=== PATIENT | female | born 1975 | race Hispanic/Latino ===

== ENCOUNTER → 2020-05-22 | Outpatient (CLI) | payer OTHER | LOC: MAMMO 09:02 | PROVIDERS: ATTEND Internal Medicine | DX: Z12.31 Encounter for screening mammogram for malignant neoplasm of breast (principal) | CPT/HCPCS: 77067 ==

== ENCOUNTER 2021-01-09 20:37 | Emergency (ER) | payer OTHER ==
[~2021-01-09] VITALS: Ht 162.6 cm; Wt 97.5 kg
[2021-01-09] MEDS ORDERED: CASIRIVIMAB/IMDEVIMAB 10 ML in SODIUM CHLORIDE 0.9% 100 ML IV ONE (22:15)
[2021-01-10 05:12] VITALS: BP 132/77
== END 2021-01-10 01:00 | disposition home or self-care (01) ==
LOC: ER 21:07
DX: R06.02 Shortness of breath (principal); R05 Cough; R11.0 Nausea; U07.1 COVID-19
CPT/HCPCS: 71045; 99283; J7050; U0002

== ENCOUNTER → 2024-03-09 | Outpatient (REF) | payer OTHER | LOC: MAMMO 10:57 | PROVIDERS: ATTEND Internal Medicine | DX: Z12.31 Encounter for screening mammogram for malignant neoplasm of breast (principal) | CPT/HCPCS: 77067 ==

== ENCOUNTER → 2024-04-07 | Day surgery (SDC) | payer OTHER ==
[~2024-04-07] MED LIST: FOLIC ACID0.4 MG PO; HYOSCYAMINE SULFATE 0.5 MG/ML INJ ONE; LACTATED RINGER'S 1,000 ML ONE; LISINOPRIL-HCT1 EAC2 PO; LISINOPRIL10 MG PO; MAG GLYCINATE100 MG; MOUNJARO15 MG/0.5; MULTI-VITAMIN1 EACH PO; ROSUVASTATIN CA10 MG PO; XIGDUO XR 5 MG1 EAC1
[2024-04-07 11:45] VITALS: BP 128/95; PULSE 103; RESP 16; TEMP 97.3; O2SAT 99
== END | disposition home or self-care (01) ==
LOC: OR 08:46
PROVIDERS: ATTEND Internal Medicine Gastroenterology
DX: Z12.11 Encounter for screening for malignant neoplasm of colon (principal); K62.89 Other specified diseases of anus and rectum; K57.30 Diverticulosis of large intestine without perforation or abscess without bleeding; K64.8 Other hemorrhoids; Z71.3 Dietary counseling and surveillance; I10 Essential (primary) hypertension; E11.9 Type 2 diabetes mellitus without complications; E28.2 Polycystic ovarian syndrome; Z01.810 Encounter for preprocedural cardiovascular examination; Z79.84 Long term (current) use of oral hypoglycemic drugs; Z79.85 Long-term (current) use of injectable non-insulin antidiabetic drugs; Z79.899 Other long term (current) drug therapy; Z68.32 Body mass index [BMI] 32.0-32.9, adult; Z80.0 Family history of malignant neoplasm of digestive organs
CPT/HCPCS: 36415; 45380; 81025; 82948; 93005; J1980; J7121; 45378